=== PATIENT | male | born 1955 | race Caucasian/White ===

== ENCOUNTER 2021-04-10 08:37 | Day surgery (SDC) | payer MEDICARE ==
[~2021-04-10] VITALS: Ht 182.9 cm; Wt 90.4 kg
[~2021-04-10 08:37] MED LIST: AMLODIPINE PO; FAMO20 PO; FENOFIBRATE PO; FENOFIBRATE145 MG PO; IRBE150 PO; LISHYD1012 PO; Norvasc5 MG PO; Pravachol40 MG PO; TRAM50 PO
[2021-04-10] MEDS ORDERED: ROPI1 PO (09:33)
--- NOTE | 2021-04-10 09:42 | NUR ---
04/10/21 0942 Neeta Latif History, Chart, Medications and Allergies reviewed before start of procedure. Patient confirms NPO status and agrees with scheduled surgery. 3-LEAD EKG REVIEWED WITH PHYSICIAN PRIOR TO START OF PROCEDURE. MONITOR INTACT WITH CONTINUOUS PULSE OXIMETRY AND INTERMITTENT BP. PATIENT DETERMINED TO BE ASA APPROPRIATE FOR PROPOFOL SEDATION PRIOR TO START OF PROCEDURE BY .
--- NOTE | 2021-04-10 10:45 | NUR ---
Discharge instructions reviewed with patient. Patient verbalizes understanding. Copy given to patient to take home. Discharged via wheelchair to private car for ride home.
== END 2021-04-10 10:47 | disposition home or self-care (01) ==
LOC: ORSCMMR 08:37 → ORD 09:30 → ORSCMMR 09:30
PROVIDERS: Internal Medicine Gastroenterology
PROC: 0DBN8ZX Excision of Sigmoid Colon, Via Natural or Artificial Opening Endoscopic, Diagnostic (ICD-10-PCS; principal; 2021-04-10 09:30)
PROC: 0DBP8ZX Excision of Rectum, Via Natural or Artificial Opening Endoscopic, Diagnostic (ICD-10-PCS; principal; 2021-04-10 09:30)
DX: Z12.11 Encounter for screening for malignant neoplasm of colon (principal); Z86.010 Personal history of colon polyps; D12.5 Benign neoplasm of sigmoid colon; D12.8 Benign neoplasm of rectum; I10 Essential (primary) hypertension; E78.00 Pure hypercholesterolemia, unspecified; Z79.899 Other long term (current) drug therapy
CPT/HCPCS: 88305; J2704; J7120

== ENCOUNTER 2025-01-20 09:14 | Emergency (ER) | payer OTHER, MEDICARE ==
[~2025-01-20] VITALS: Ht 182.9 cm; Wt 81.7 kg
[~2025-01-20 09:14] MED LIST changes: +ROPI1 PO
[2025-01-20 09:21] VITALS: BP 172/95
== END 2025-01-20 09:50 | disposition home or self-care (01) ==
LOC: ER 09:14
DX: S83.207A Unspecified tear of unspecified meniscus, current injury, left knee, initial encounter (principal); I10 Essential (primary) hypertension; E78.5 Hyperlipidemia, unspecified; Z87.891 Personal history of nicotine dependence; Z79.899 Other long term (current) drug therapy; V29.99XA Rider (driver) (passenger) of other motorcycle injured in unspecified traffic accident, initial encounter
CPT/HCPCS: 73562-LT; 99283-25